=== PATIENT | male | born 2000 | race African-American/Black ===

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

== ENCOUNTER 2021-05-24 21:05 | Emergency (ER) | payer OTHER | END 2021-05-24 22:32 | disposition home or self-care (01) | LOC: MADERS 21:05 | DX: R11.2 Nausea with vomiting, unspecified (principal); R10.13 Epigastric pain | CPT/HCPCS: 99283 ==

== ENCOUNTER 2021-10-12 06:26 | Emergency (ER) | payer BC, OTHER | END 2021-10-12 08:19 | disposition home or self-care (01) | LOC: MADERS 06:26 | DX: S43.402A Unspecified sprain of left shoulder joint, initial encounter (principal); W22.01XA Walked into wall, initial encounter ==

== ENCOUNTER 2021-10-20 06:41 | Emergency (ER) | payer BC, OTHER | END 2021-10-20 07:36 | disposition home or self-care (01) | LOC: MADERS 06:41 | DX: Z02.79 Encounter for issue of other medical certificate (principal); S43.402A Unspecified sprain of left shoulder joint, initial encounter; X58.XXXA Exposure to other specified factors, initial encounter | CPT/HCPCS: 99283 ==

== ENCOUNTER 2023-11-17 23:07 | Emergency (ER) | payer BC, OTHER, SELFPAY ==
[2023-11-17] MEDS ORDERED: fentaNYL 50 mcg/mL 1 mL Vial ONE ×2 (23:21→23:44)
[2023-11-17] MEDS ORDERED: Midazolam HCl 5 mg/ml Vial ONE (23:44)
== END 2023-11-18 01:32 | disposition home or self-care (01) ==
LOC: MADERS 23:07
DX: S43.015A Anterior dislocation of left humerus, initial encounter (principal); F17.290 Nicotine dependence, other tobacco product, uncomplicated; X50.0XXA Overexertion from strenuous movement or load, initial encounter; Y93.72 Activity, wrestling; Y92.009 Unspecified place in unspecified non-institutional (private) residence as the place of occurrence of the external cause
CPT/HCPCS: 94760; J2250; J3010

== ENCOUNTER 2023-12-26 16:15 | Emergency (ER) | payer OTHER | END 2023-12-26 17:15 | disposition home or self-care (01) | LOC: MADERS 16:15 | DX: L73.9 Follicular disorder, unspecified (principal); F17.290 Nicotine dependence, other tobacco product, uncomplicated | CPT/HCPCS: 99283 ==

== ENCOUNTER 2024-11-23 17:20 | Emergency (ER) | payer OTHER, SELFPAY ==
[2024-11-23] MEDS ORDERED: Ketorolac Tromethamine 30 MG (1 mL) VIAL ONE (17:43)
[2024-11-23] MEDS ORDERED: Ondansetron PF 4 MG/2 ML Vial ONE (17:43)
== END 2024-11-23 19:10 | disposition home or self-care (01) ==
LOC: MADERS 17:20
DX: S43.015A Anterior dislocation of left humerus, initial encounter (principal); F17.290 Nicotine dependence, other tobacco product, uncomplicated; X58.XXXA Exposure to other specified factors, initial encounter; Y93.72 Activity, wrestling
CPT/HCPCS: 23650; 96374; 96375; J1885